=== PATIENT | female | born 1945 | race Caucasian/White ===

== ENCOUNTER 2017-09-19 14:29 | Inpatient (IN) | payer MEDICARE, OTHER ==
--- NOTE | ~2017-09-19 | PR ---
[place], [place] PROGRESS NOTE NAME: ANTOLIN PALOMARES UNIT #: [id number] ROOM: 317 DOCTOR: EUSEBIO LARIOS MD BIRTHDATE: [birth year] DOS: 10/03/2017 CHIEF COMPLAINT: The patient only looked angrily at me and did not verbalize. SUMMARY OF THE VISIT: The patient was interviewed as she sat eating breakfast. She frowned as she looked at me, but did not speak. Nurses report that she episodically will speak, and more so will speak on the phone with her daughter than she will with staff. MENTAL STATUS: Limited due to her lack of participation. PLAN: I will discontinue Seroquel in lieu of Saphris 10 mg twice daily, utilizing 2 antipsychotics at the present time due to her significant decompensation. We will monitor and support, engage in individual and lester milieu activities. EUSEBIO LARIOS MD CM:PNTRANS [phone] EUSEBIO LARIOS MD 10/03/1718 interface
--- NOTE | ~2017-09-19 | PR ---
[place], [place] PROGRESS NOTE NAME[id number] UN[facility] #: [id number] ROOM: 316 DOCTOR: PAIGE NUNO DO BIRTHDATE: [birth year] DOS: 09/21/2017 CHIEF COMPLAINT: "What's happening." SUMMARY OF VISIT: A 72-year-old female interviewed while sitting in the dining benjamin. The patient initially was nonverbal; however, after prompting, the patient states "what is happening, but I am Chau, I should be here." Informed the patient that we did actually see Chau yesterday and are working on her going to the same nursing facility as him. However, she stopped taking her medications and needs to be treated while here. After interviewing the patient and on our way to an interview another patient, she stops and states "wait, not supposed to be here, Chau is here." Again informed the patient about her situation. The patient had multiple episodes of shaking her head back and forth and increase in her breathing rate. She also became tearful and started crying. Per nursing staff, the patient isolates herself and his withdrawal. The patient needing a lot of redirection regarding where she is at. The patient slept about 10 hours last night. MENTAL STATUS EXAMINATION: The patient is alert. It is unclear if she is oriented to herself, claiming to be Chau at one point. She is not oriented to place or time. Majority of the time, the patient is nonverbal, but will speak in short segments. She continues to dart her eyes around the room and sometimes stare intensely at individuals that are present. She continues to look frightened and bewildered. There is no agitation. There is no visual or auditory hallucinations. There is no vikki or hypomania. Short term memory is poor. PLAN: 1. Invega suspension 234 IM. 2. Lab work showed decreased vitamin D at 24.9, vitamin D supplementation was started at 1000 international units daily. 3. We will continue to engage in individual and lester milieu activity with the plan to return to the least restrictive environment when psychiatrically stable. ADDENDUM Dr. Larios 09/27 03:30 p.m.: Above note reviewed. Agree with observations, recommendations, and overall treatment plan. Paige Nuno DO [place], [place] PROGRESS NOTE NAME: ANTOLIN PALOMARES UNIT #: [id number] ROOM: 316 DOCTOR: PAIGE NUNO DO BIRTHDATE: [birth year] EUSEBIO LARIOS MD CM:PNTRANS 1115 T: PAIGE NUNO DO 09/27/17 1558 RONNA AVILA.R
--- NOTE | ~2017-09-19 | DS ---
[place], [place] DISCHARGE SUMMARY NAME: [facility]ES [id number] UNIT #: [id number] ROOM: 317 DOCTOR: EUSEBIO LARIOS MD BIRTHDATE: [birth year] DOS: 10/05/2017 CHIEF COMPLAINT: The patient was nonverbal. HISTORY OF PRESENT ILLNESS: This is a 72-year-old white female who was transferred here from [facility] where she was brought there by EMS. The patient was found by her caregivers at home, nearly catatonic. The patient has a lengthy history of bipolar disorder and has periods of increased catatonia when she decompensates. She has been refusing to eat or drink and has not been attending to her ADLs. Her home was found to be in absolutely deplorable condition. Upon evaluation at [facility], she was found to be minimally conversant and would just stare into space. Because of her overall level of decompensation, it was felt that an inpatient hospitalization was warranted and she was transferred to the [facility] Unit for further evaluation and treatment. PAST MEDICAL HISTORY: Remarkable for bipolar disorder, diverticulosis, GERD, hyperlipidemia, hypothyroidism. SOCIAL HISTORY: The patient does not drink, smoke cigarettes or use illicit drugs. She lists no known allergies. SUMMARY OF THE HOSPITAL COURSE: The patient was admitted to the unit where her Abilify was discontinued in lieu of Risperdal 1 mg twice daily. It was hoped to ultimately stabilize her utilizing a long-acting decanoate injection. The patient had a rather lengthy stay that was characterized by her remaining nearly catatonic during the entire time. Efforts were made to shift from several different antipsychotics and she was tried on Saphris as well as several antidepressants including Remeron and Trintellix. The patient continued to be nearly catatonic through the entire time having brief periods of time where she would engage in very superficial conversation, often times just a word or two. The patient had decompensated physically to the point where it was felt that she was dehydrated and possibly septic. Given that fact on the day of discharge, the patient was transferred from the psychiatric unit to a medical floor for rehydration and also for stabilization. MENTAL STATUS AT DISCHARGE: The patient was alert and oriented to self. She would make eye contact, but barely spoke anything. She moved her extremities and was not resistive in anyway. She was grossly psychotic. There were no symptoms suggestive of hypomania or vikki. It was not possible to further test her memory function because she would not verbalize enough to do so. At the time of discharge, psychiatrically her diagnosis is bipolar disorder type 1, mixed, with psychotic features. DISPOSITION: The patient was medically compromised due to dehydration and was discharged from the psychiatric unit for further medical treatment. [place], [place] DISCHARGE SUMMARY NAME: ANTOLIN PALOMARES UNIT #: [id number] ROOM: [facility] DOCTOR: EUSEBIO LARIOS MD BIRTHDATE: [birth year] EUSEBIO LARIOS MD CM:ELIEL 6 [id number] EUSEBIO LARIOS MD 10/31/17 1231 interface
--- NOTE | ~2017-09-19 | PN ---
[place], [place] PROGRESS NOTE NAME: ANTOLIN PALOMARES UNIT #: [id number] ROOM: 317 DOCTOR: EUSEBIO LARIOS MD BIRTHDATE: [birth year] DATE: 10/09/[address] LARIOS 10/12 02:06 P.M.: Above note reviewed. Agree with observations, recommendations, and overall treatment plan. EUSEBIO LARIOS MD CM:PNTRANS 1406 1543 EUSEBIO LARIOS MD 10/12/17 1543 RONNA AVILA MIS.LLR
--- NOTE | ~2017-09-19 | PR ---
[place], [place] PROGRESS NOTE NAME: ANTOLIN PALOMARES UNIT #: [id number] ROOM: 317 DOCTOR: NURYS PAIGE BIRTHDATE: [birth year] DOS: 09/28/2017 CHIEF COMPLAINT: The patient continues to be nonverbal. SUMMARY OF VISIT: A 72-year-old female was interviewed in the dining benjamin while eating breakfast. The patient is able to eat breakfast unassisted and when spoken to, she stops eating and looks at us. Prompted the patient if she needed anything and the patient kept staring at us and continued to be nonverbal. Nursing reports that patient slept about 8 hours last night. The patient did assist the nurses when she needed to be repositioned of bed or moved such as grabbing the handrails of the bed, which is something that the patient did not do previously. MENTAL STATUS EXAMINATION: The patient is alert and oriented to self. She looks at us when we call her name. Evaluation is limited to the patient being nonverbal. The patient is calm and withdrawn. The patient appears to be selectively mute. PLAN: 1. Continue current medication regimen. 2. Continue to engage in individual and lester milieu activity, returning to a least restrictive environment when psychiatrically stable. 3. Plan to discharge the patient hopefully next week to [facility] when the patient is medically and psychiatrically stable. ADDENDUM 10/12/17 2:06 P.M.: Above note reviewed. Agree with observations, recommendations, and overall treatment plan. Paige Robles DO [place], [place] PROGRESS NOTE NAME: ANTOLIN PALOMARES UNIT #: [id number] ROOM: 317 DOCTOR: NURYS PAIGE BIRTHDATE: [birth year] EUSEBIO LARIOS MD CM:PNTRANS 00 PAIGE ROBLES DO 10/12/17 141 RONNA AVILA MIS.LLR
--- NOTE | ~2017-09-19 | WRIGHTHP ---
[place], [place] PATIENT HISTORY AND PHYSICAL EXAM NAME: [id number] UNIT #: [id number] ROOM: 315 DOCTOR: EUSEBIO LARIOS MD BIRTHDATE: [birth year] DOS: 09/20/2017 INITIAL PSYCHIATRIC EVALUATION CHIEF COMPLAINT: The patient was nonverbal. HISTORY OF PRESENT ILLNESS: This is a 72-year-old white female who was transferred here from [facility] where she had been brought by EMS. The patient was sent to the Emergency Room at [place] by caregivers who found her at home catatonic. The patient has a lengthy history of bipolar disorder and does have periods of increased catatonia when she decompensates. She has been refusing to eat or drink, has not been attending to her ADLs, and her home was found in deplorable conditions. Upon evaluation both at [facility] and since she has been here at the [facility] unit at [facility], the patient has been minimally conversant. She will stare. She has occasionally verbalized a single word answer stating no to the question of are you in pain otherwise. She refused lithium and has refused certain medications. She did not have breakfast this morning. She is admitted now to rule out organic factors, to stabilize on medication, to engage in individual and lester milieu activity, and to determine the least restrictive environment to which she should return. PAST MEDICAL HISTORY: Remarkable for bipolar disorder, diverticulosis, GERD, hyperlipidemia, hypothyroidism. She does not drink alcohol, smoke cigarettes or use illicit drugs. ALLERGIES: She has no known drug allergies. 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 WEAKNESSES: Significant long-term psychiatric disorder and poor coping skills. MENTAL STATUS: The patient is alert and oriented to self. She will make eye contact when you call her name. Otherwise, she was nonverbal, could not really elicit anything from her. At one point in time, however, she did have darting eyes and was looking out into the benjamin or looking at the medical student that had accompanied us into her room. She continued to look somewhat frightened and bewildered, but again did not verbalize anything whatsoever. DIAGNOSIS: Bipolar type 1, mixed, with psychotic features. PLAN: I have discontinued her Abilify in lieu of Risperdal orally disintegrating tablets, which I will now increase to 1 mg b.i.d. If need be, I will utilize either Risperdal Consta or Invega Sustenna to improve compliance. I have discontinued lithium due to her noncompliance plus it can interact with other meds she is taking. I will start her on Remeron orally disintegrating tablet 15 mg at bedtime to combat some of the depressive symptoms. I have instructed director of social services to proceed with a PASR in case she requires long-term care placement. We will attempt to engage in individual and lester milieu [place], [place] PATIENT HISTORY AND PHYSICAL EXAM NAME: ANTOLIN PALOMARES UNIT #: [id number] ROOM: 315 DOCTOR: EUSEBIO LARIOS MD BIRTHDATE: [birth year] activity. We will also consult PT, OT to get her up and moving so that she does not develop any type of pressure sore or muscle wasting. EUSEBIO LARIOS MD CM:HISPHYS:PATIENT HISTORY AND PHYSICAL EXAMINATION 1017 1223 EUSEBIO LARIOS MD 09/20/17 1222 interface
--- NOTE | ~2017-09-19 | PR ---
[place], [place] PROGRESS NOTE NAME: ANTOLIN PALOMARES UNIT #: [id number] ROOM: 316 DOCTOR: EUSEBIO LARIOS MD BIRTHDATE: [birth year] DOS: 09/23/2017 CHIEF COMPLAINT: The patient only looked at me. SUMMARY OF THE VISIT: The patient was attempted to be interviewed as she was resting in her bed. She did make eye contact when I did ask her if she needed the king. There was a king on the window sill and she turned her head to the king. She did not verbalize anything. She was pleasant, however, and she did not yell out or scream like she had in the past. Nurses report she has been more compliant with her meds and did receive her Invega Sustenna loading dose. I see no sedation, somnolence, extrapyramidal symptoms or tardive dyskinesia. MENTAL STATUS: She is alert and oriented to person, unclear place or time. Mood does seem to be still depressed and she is somewhat mute and catatonic, although she does move in response to commands at times. It is hard to assess memory function because of her inability or unwillingness to cooperate. PLAN: At the present time will be to reload with Invega Sustenna 156 mg IM on 09/27/2017 and every month thereafter, continue her other psychotropics, engage in individual and lester milieu activity, returning to the least restrictive environment when stable. EUSEBIO LARIOS MD CM:PNTRANS [id number] EUSEBIO LARIOS MD 09/24/17 0047 interface
--- NOTE | ~2017-09-19 | PR ---
[place], [place] PROGRESS NOTE NAME: ANTOLIN PALOMARES UNIT #: [id number] ROOM: 317 DOCTOR: PAIGE NUNO DO BIRTHDATE: [birth year] DOS: 09/29/2017 CHIEF COMPLAINT: "The patient remains nonverbal." SUMMARY OF VISIT: A 72-year-old female was interviewed in the dining benjamin. The patient remained nonverbal during the entire interview. She continued to stare at her breakfast tray the entire time this morning without acknowledging us. When we spoke to her, the patient would not turn or nod her head today. The patient was able to feed herself breakfast yesterday; however, has not fed herself since then. Nursing staff attempted to assist patient to eat and drink, but she continued to refuse this morning. Nursing reports the patient did walk about 40 feet last night with a very slow shuffling gait pattern. The patient has not walked since then. The patient had slept about 5 hours last night. MENTAL STATUS EXAMINATION: She is alert, unable to assess orientation at this time because the patient is refusing to move and is nonverbal. Evaluation continues to be limited due to patient being nonverbal. We continued to suspect that the patient is selectively mute. PLAN: 1. Discontinue Ritalin. 2. Start Wellbutrin-XL 150 mg q.a.m. 3. Continue to have individual, engage in individual and lester milieu activity, returning to the least restrictive environment when psychiatrically stable. 4. Discharge will be determined when the patient is medically and psychiatrically stable at that time. ADDENDUM 10/12/17 2:06 P.M.: Above note reviewed. Agree with observations, recommendations, and overall treatment plan. Paige Nuno DO [place], [place] PROGRESS NOTE NAME: ANTOLIN PALOMARES UNIT #: [id number] ROOM: 317 DOCTOR: PAIGE NUNO DO BIRTHDATE: [birth year] EUSEBIO LARIOS MD CM:PNTRANS 5 20 PAIGE NUNO DO 10/12/17 1410 RONNA AVILA.R
--- NOTE | ~2017-09-19 | PR ---
[place], [place] PROGRESS NOTE NAME: ANTOLIN PALOMARES UNIT #: [id number] ROOM: 317 DOCTOR: EUSEBIO LARIOS MD BIRTHDATE: [birth year] DOS: 10/01/2017 INTERVAL NOTE CHIEF COMPLAINT: "The patient was once again nonverbal towards me." SUMMARY OF THE VISIT: The patient was attempted to be interviewed. She was sitting in a Quita chair by the nurses' station. She once again was nonverbal towards me; however, the nurse that was working with her last evening said that she made a dramatic improvement last evening, verbalized some to her, was able to tell the nurse that she does feel anxious and worries about things. She fed herself. She took her medicines herself once again this morning; however, she became nonverbal. How much of this is anxiety driven by psychosis is unclear. MENTAL STATUS: Limited by her being nonverbal. PLAN: I will maintain her Wellbutrin-XL and her Remeron, maintain the Seroquel, consider increasing this. For now, I will look to add Ativan 0.5 mg 3 times a day to see if this dissipates her anxiety and makes her feel more like engaging. We will attempt to engage as much we can in individual and lester milieu activity, returning then to the least restrictive environment when stable. EUSEBIO LARIOS MD CM:PNTRANS [phone] EUSEBIO LARIOS MD 10/01/17 2320 interface
--- NOTE | ~2017-09-19 | PR ---
[place], [place] PROGRESS NOTE [id number] UNIT #: [id number] ROOM: 316 DOCTOR: PAIEG NUNO DO BIRTHDATE: [birth year] DOS: 09/22/2017 PSYCHIATRIC PROGRESS NOTE CHIEF COMPLAINT: "Okay." SUMMARY OF VISIT: A 72-year-old female was interviewed while sitting in the chair in her room. The patient continues to stare intensely and provides one word answers, usually consisting of okay or yes or no. When asked about breakfast, the patient just said yes. The patient then became nonverbal and did not answer any further questions. When asked about being cold, the patient did nod her head, but otherwise remained nonverbal. Informed the patient about people visiting from [facility] and the patient just continued to stare. Per nursing staff, the patient refused night meds last night. The patient was given p.r.n. Ativan IM for anxiety. Nursing reported that patient usually speaks more earlier in the day; however, as the day progresses, she becomes more mute. The patient was reported having stated to one nursing staff member that she was going to go to hel and could feel the demons biting her legs. MENTAL STATUS EXAMINATION: The patient is alert and oriented to self. She responded to her name when it was called. Unable to assess whether she was oriented to place or time due to patient becoming nonverbal during interview. Mood is depressed and anxious. Affect is flat. The patient is very paranoid with eyes darting around. She is most of the time, nonverbal, when asked questions. There is no agitation. There is no visual or auditory hallucinations. There is no vikki or hypomania. Short term memory remains poor. PLAN: 1. Invega suspension 234 mg IM today. 2. The patient was found to have a UTI. Culture and sensitivity come back and medications were readjusted in regards of that via the hospitalist team. 3. We will engage in individual and lester milieu activity with a plan to return to the least restrictive environment when psychiatrically stable. ADDENDUM Dr. Larios 09/27 03:30 p.m.: Above note reviewed. Agree with observations, recommendations, and overall treatment plan. Paige Nuno DO [place], [place] PROGRESS NOTE NAME: ANTOLIN PALOMARES [place] UNIT #: [id number] ROOM: [facility] DOCTOR: PAIGE NUNO DO BIRTHDATE: [birth year] EUSEBIO LARIOS MD CM:PNANDRES 1136 T: PAIGE NUNO DO 09/27/17 1559 RONNA AVILA.R
--- NOTE | ~2017-09-19 | PR ---
[place], [place] PROGRESS NOTE NAME: ANTOLIN PALOMARES UNIT #: [id number] ROOM: 316 DOCTOR: EUSEBIO LARIOS MD BIRTHDATE: [birth year] DOS: 09/24/2017 CHIEF COMPLAINT: "The patient was nonverbal and just stared ahead." SUMMARY OF THE VISIT: The patient was attempted to be interviewed as she rested in bed. She was staring straight ahead. I attempted on multiple occasions to engage her changing the subject frequently in it to see if I can get her to at least verbalize something, she did not. She was not agitated, however, did not scream or yell. She did seem to be tolerating the medicines well and I see no sedation or somnolence. MENTAL STATUS: My mental status examination is limited because she is mute. PLAN: I will give her a dose of Ritalin 10 mg at noon to see if this could give some activating effect and help her move out of this near catatonic state. I will also change when she gets the Invega Sustenna injection of 156 mg and move it forward to 09/25/2017 rather than waiting to 09/27/2017. We will attempt to engage her as much as we can and discharge then when psychiatrically stable. EUSEBIO LARIOS MD CM:PNTRANS [phone] EUSEBIO LARIOS MD 09/25/17 0552 interface
--- NOTE | ~2017-09-19 | PR ---
[place], [place] PROGRESS NOTE NAME: ANTOLIN PALOMARES UNIT #: [id number] ROOM: 316 DOCTOR: EUSEBIO LARIOS MD BIRTHDATE: [birth year] DOS: 09/25/2017 CHIEF COMPLAINT: "The patient nodded yes and no, but engaged in conversation with me." SUMMARY OF THE VISIT: The patient was once again interviewed as she was resting in bed. She was staring straight ahead. At this time, though she at least made eye contact with me and when I asked her simple yes and no questions, she was able to nod yes or no appropriately. What I was able to gather from my visit was that she is not sleeping at night, she is not sleeping during the day and napping at all. She is tired, but cannot rest. She is willing to allow me to give her some type of medicine at nighttime that is going to allow her to sleep better. She was very cooperative and not resistant to me in anyway this morning. MENTAL STATUS: She is alert and oriented at least to self, place and unclear about time. 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 PLAN: I will discontinue her Risperdal at nighttime in lieu of Seroquel 100 mg at bedtime. At this point in time given the severity of her catatonia, psychosis or selective mutism, I feel justify utilizing 2 different antipsychotics. I will renew her p.r.n. Ativan, try at best to engage her in individual and lester milieu activities, returning to the least restrictive environment when stable. EUSEBIO LARIOS MD CM:PNTRANS [phone] EUSEBIO LARIOS MD 09/26/17 0602 interface
--- NOTE | ~2017-09-19 | PR ---
[place], [place] PROGRESS NOTE NAME: ANTOLIN APLOMARES UNIT #: [id number] ROOM: 317 DOCTOR: EUSEBIO LARIOS MD BIRTHDATE: [birth year] DOS: 10/04/2017 CHIEF COMPLAINT: The patient was nonverbal. SUMMARY OF THE VISIT: The patient was attempted to be interviewed in the dining area where she was reclining in a Quita chair, watching television. The patient had her eyes open, but would not speak to me once again. After a brief period where she did seem to start wanting to converse, she has totally shut down once again. She has not been eating or drinking, which is worrisome. MENTAL STATUS: It is limited due to her lack or inability to cooperate. PLAN: I will discontinue her Saphris to lessen the antipsychotic load now and add Artane 2 mg t.i.d. to combat any EPS. We will check a stat CMP and CBC with diff just to ensure that medically she is stable. Engage in individual and lester milieu activities with the plan to return to the least restrictive environment when psychiatrically stable. EUSEBIO LARIOS MD CM:PNTRANS 1135 12 EUSEBIO LARIOS MD 10/04/172110 interface
--- NOTE | ~2017-09-19 | PR ---
[place], [place] PROGRESS NOTE NAME: ANTOLIN PALOMARES UNIT #: [id number] ROOM: 317 DOCTOR: EUSEBIO LARIOS MD BIRTHDATE: [birth year] DOS: 10/02/2017 INTERVAL NOTE CHIEF COMPLAINT: The patient was nonverbal. SUMMARY OF THE VISIT: The patient was attempted to be interviewed as she sat in the dining area. She was sitting there this time with her eyes closed. Efforts to engage her were unsuccessful. As opposed to the weekend when she actually conversed with one of the nurses, she once again has been much more nonverbal and noncommunicative. Question is if this is somewhat related to the Ativan that was added yesterday in hopes to decrease her anxiety. MENTAL STATUS EXAMINATION: It is limited due to her lack of participation. PLAN: I will discontinue the straight Ativan in case this is causing her too much sedation and we will monitor over the next 24 hours for risk, benefits. Continue to engage in individual and lester milieu activity, returning then to the least restrictive environment when psychiatrically stable. EUSEBIO LARIOS MD CM:PNTRANS 6 38 EUSEBIO LARIOS MD 10/02/171936 interface
--- NOTE | ~2017-09-19 | CON ---
[place], [place] REPORT OF CONSULTATION NAME: ANTOLIN PALOMARES UNIT #: [id number] ROOM: 317 DOCTOR: PHD TOM SCHWARTZ BIRTHDATE: [birth year] DOS: 10/05/2017 HISTORY OF PRESENT ILLNESS: The patient is a 72-year-old female referred by Dr. Bland for competency evaluation. The patient was evaluated on 09/20/[address] Arthur Su and was found to be not competent to make informed health care decisions. The patient is on the [facility] at [facility]. The patient remains catatonic per medical records and attempted clinical interview. She has 1 son and 1 daughter who both live out of [facility]. PAST MEDICAL HISTORY: Significant for bipolar 1 with psychotic features, catatonia, diverticulosis, GERD, hypothyroidism, and hyperlipidemia. MEDICATIONS: Include Remeron, Cogentin, Lipitor, clonidine, Zofran, vitamin D, Synthroid, Protonix, Toprol-XL, Artane, and Wellbutrin, Benadryl, and Saphris. SUBSTANCE ABUSE HISTORY: Unable to be assessed. PHYSICAL EXAMINATION: GENERAL: The patient is awake and not alert. She did not respond to questions verbally or nonverbally and she could not participate in the evaluation. SOCIAL HISTORY: She does not have a guardian or power of insurance legal assistant presently and is unable to make informed decisions. DIAGNOSES: Bipolar 1 with psychotic features. In my opinion, guardianship should be established for this patient and she is not competent to make informed health care decisions. Thank you very much for this consult. Lindsey Schwartz, PhD CM:CONSTR:REPORT OF CONSULTATION 1017 10/05/17 1751 interface
--- NOTE | ~2017-09-19 | PR ---
[place], [place] PROGRESS NOTE NAME: ANTOLIN PALOMARES UNIT #: [id number] ROOM: 317 DOCTOR: EUSEBIO LARIOS MD BIRTHDATE: [birth year] DOS: 09/30/2017 INTERVAL NOTE CHIEF COMPLAINT: The patient was nonverbal. SUMMARY OF THE VISIT: The patient was attempted to be interviewed as she was being wheeled into the dining area. Nurses continued to report that she is episodically nonverbal and mainly nonverbal for the most part. She eats [id number]-[id number]. There has been no agitation or aggression. She has shown minimal interaction with staff. MENTAL STATUS: My mental status is limited due to her overall lack of cooperation or inability to cooperate. PLAN: I will max out Remeron to 45 mg at bedtime trying to utilize a more active agent while simultaneously increasing the Wellbutrin-XL to 300 mg in the morning. Likewise to have activating agents to see if I can get her out of this near catatonic state. Engage in individual and lester milieu activity as best we can, returning to the least restrictive environment when stable. EUSEBIO LARIOS MD CM:PNTRANS [id number] EUSEBIO LARIOS MD 10/01/17 0038 interface
--- NOTE | ~2017-09-19 | PR ---
[place], [place] PROGRESS NOTE NAME: ANTOLIN PALOMARES UNIT #: [id number] ROOM: 317 DOCTOR: PAIGE NUNO DO BIRTHDATE: [birth year] DOS: 09/27/2017 PSYCHIATRIC PROGRESS NOTE CHIEF COMPLAINT: The patient is currently nonverbal and just staring. SUMMARY OF VISIT: A 72-year-old female was interviewed while sitting in the dining benjamin. The patient did turn her head towards us when we called her name. The patient continued to just stare at us for the rest of the conversation without moving. I asked the patient about going to the same [facility] as Chau and the patient did have a facial expression that represented a frown but remained nonverbal. I again asked the patient to give us any indication of what she wants and patient did not respond. Per nursing staff, patient slept about 7 hours last night, but had continued episodes of waking up and staring at staff. The patient did take her medications and did swallow some water when prompted. The patient does make eye contact with staff. MENTAL STATUS EXAMINATION: The patient is alert and oriented to self. The patient turned her head towards us when stating her name, unable to determine if she is oriented to place or time due to the patient being nonverbal. Evaluation is limited due to her continuing to be nonverbal. 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 PLAN: 1. Continue current medication regimen. 2. Continue to engage in individual and elster milieu activity returning to the least restrictive environment when psychiatrically stable. ADDENDUM 10/12/17 2:06 P.M.: Above note reviewed. Agree with observations, recommendations, and overall treatment plan. Paige Nuno DO [place], [place] PROGRESS NOTE NAME: ANTOLIN PALOMARES UNIT #: [id number] ROOM: 317 DOCTOR: PAIGE NUNO DO BIRTHDATE: [birth year] EUSEBIO LARIOS MD CM:PNTRANS [id number] PAIGE NUNO DO 10/12/17 1410 RONNA AVILA.LLR
--- NOTE | ~2017-09-19 | CON ---
[place], [place] REPORT OF CONSULTATION NAME: ANTOLIN PALOMARES UNIT #: [id number] ROOM: 315 DOCTOR: LAWRENCE LESTER ED.D (KHARI) BIRTHDATE: [birth year] DOS: 09/20/2017 HISTORY OF PRESENT ILLNESS: The patient is a 72-year-old female referred by Dr. Larios for competency evaluation. At the present time, this patient is on the [facility] Unit at [facility]. At the present time, she is quite catatonic. She does have 1 son and 1 daughter, both of whom reside in state other than [place]. PAST MEDICAL HISTORY: Pertinent for bipolar 1 with psychotic features, catatonia, diverticulosis, GERD, hypothyroidism, hyperlipidemia. MEDICATIONS: Include Risperdal, Lipitor, Synthroid, Lithobid, Toprol, Claritin, lycopene, Senokot and Protonix. I am uncertain of her past substance abuse issues. This patient was awake and alert. She could not answer when I asked any questions regarding her name or where she was. She appeared to be having visual hallucinations throughout the interview. It is difficult to assess her memory because she is not really talking other than saying a few words. She is obviously quite psychotic at this time and needs inpatient treatment. Unfortunately, she does not have a guardian or power of bankruptcy attorney at this time and is unable to make any informed decisions, so therefore, I completed guardianship papers for this patient. DIAGNOSIS: Bipolar 1 with psychotic features. RECOMMENDATIONS: In my opinion, guardian should be established for this patient and that she is unable to really communicate her needs or wishes regarding her healthcare. Thank you very much for this consult. LAWRENCE LESTER ED.D CM:CONSTR:REPORT OF CONSULTATION 1721 09/20/172125 interface EUSEBIO LARIOS MD
--- NOTE | ~2017-09-19 | PR ---
[place], [place] PROGRESS NOTE NAME: ANTOLIN PALOMARES UNIT #: [id number] ROOM: 316 DOCTOR: PAIGE NUNO DO BIRTHDATE: [birth year] DOS: 09/26/2017 PSYCHIATRIC PROGRESS NOTE CHIEF COMPLAINT: Patient is currently nonverbal and not even moving her head at this time. SUMMARY OF VISIT: A 72-year-old female was interviewed while sitting in the hallway with physical therapy. At this time, patient did not respond to any questions and did not even acknowledge our presence. Throughout the entire interview, patient continued to look straight ahead at the wall without moving her eyes and had her hands gripping the side rails. Patient did not even move her head to address any of the questions when being asked. Per nursing staff, patient did take all of her medications with lots of coaxing for the past 24 hours. Nursing reports that patient was more compliant with medications when you mention to her that Chau told her to take them. Patient also had Chau call her yesterday on the phone; however, patient did not acknowledge the phone or even talk to Chau. Nursing also reports that patient slept about 4 hours last night with frequent episodes of her being awake and staring intensely at staff when they walked by her room. MENTAL STATUS EXAMINATION: Patient is alert, unable to assess orientation at this time due to patient being nonverbal. Evaluation is limited due to patient being nonverbal. 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 PLAN: 1. Increase Ritalin 10 mg b.i.d. 2. Continue to engage in individual and lester milieu activity, returning to the least restrictive environment when psychiatrically stable. ADDENDUM Dr. Larios 09/27 03:30 p.m.: Above note reviewed. Agree with observations, recommendations, and overall treatment plan. Paige Nuno DO [place], [place] PROGRESS NOTE NAME: ANTOLIN PALOMARES UNIT #: [id number] ROOM: 316 DOCTOR: PAIGE NUNO DO BIRTHDATE: [birth year] EUSEBIO LARIOS MD CM:VANGIE 0910 T: PAIGE NUNO DO 09/27/17 1601 RONNA AVILA.R
[2017-09-19] MEDS ORDERED: PROTONIX40 MG PO (15:31)
[2017-09-19] MEDS ORDERED: SYNTHROID,LEV125 MCG PO (15:32)
[2017-09-19] MEDS ORDERED: LITHOBID300 M1 PO (15:33)
[2017-09-19] MEDS ORDERED: LIPITOR20 MG PO (15:33)
[2017-09-19] MEDS ORDERED: CLARITIN10 MG PO (15:35)
[2017-09-19] MEDS ORDERED: TOPROL XL25 MG PO (15:36)
[2017-09-19] MEDS ORDERED: THERAGRAN-M PR1 EACH PO (15:36)
[2017-09-19] MEDS ORDERED: COLACE100 MG PO (15:37)
[2017-09-19] MEDS ORDERED: SENOKOT8.6 MG PO (15:37)
[2017-09-19] MEDS ORDERED: ABILIFY20 MG PO (15:39)
[2017-09-19] MEDS ORDERED: TYLENOL EXTRA500 M2 PO (15:39)
[2017-09-19 17:17] VITALS: BP 202/94
[2017-09-19 17:46] VITALS: BP 202/94
[2017-09-19 20:11] VITALS: BP 184/86
[2017-09-20] VITALS (11 sets, daily range): BP systolic 125–200; BP diastolic 58–84
[2017-09-20 09:31] LABS: BASO % 0.4 % (0.0-1.0); EOS # 0.1 10*3/uL (0.0-0.4); EOS % 1.4 % (1.0-4.0); HEMATOCRIT 41.2 % (37.0-47.0); HEMOGLOBIN 13.6 g/dl (12.0-16.0); LYMPH # 0.6 10*3/uL (1.3-4.4); LYMPH % 12.3 % (27.0-41.0); MEAN CELL VOLUME 94.7 fl (81.0-99.0); MEAN CORPUSCULAR HGB 31.3 pg (27.0-31.0); MEAN PLATELET VOLUME 9.5 fl (9.6-12.3); MONO # 0.4 10*3/uL (0.1-1.0); MONO % 7.5 % (3.0-9.0); PLATELET COUNT AUTOMATED 161 10*3/uL (130-400); RED BLOOD COUNT 4.35 10*6/uL (4.10-5.10); RED CELL DISTRI WIDTH 13.2 % (0-14.5); WHITE BLOOD COUNT 5.1 10*3/uL (4.8-10.8)
[2017-09-20 10:00] LABS: ALBUMIN 3.9 gm/dl (3.1-4.5); ALKALINE PHOSPHATASE 80 U/L (45-117); BUN 12 mg/dl (7-24); CHLORIDE 107 mmol/L (98-107); CHOLESTEROL 247 mg/dL (<200); CREATININE 0.58 mg/dL (0.55-1.02); HDL CHOLESTEROL 48 mg/dl (40-60); LDL CHOLESTEROL 179 mg/dL (9-159); PHOSPHOROUS 2.6 mg/dL (2.5-4.9); POTASSIUM 3.4 mmol/L (3.5-5.1); SGOT/AST 15 IU/L (3-35); SGPT/ALT 19 U/L (12-78); SODIUM 144 mmol/L (136-145); TRIGLYCERIDES 101 mg/dl (<150); VLDL CHOLESTEROL 20 mg/dL (6-40)
[2017-09-20 10:01] LABS: BILIRUBIN NEGATIVE (NEGATIVE); BLOOD 2+ (NEGATIVE); CLARITY TURBID (CLEAR); COLOR YELLOW (YELLOW); GLUCOSE NEGATIVE (NEGATIVE); KETONE 3+ (NEGATIVE); LEUKO ESTERASE 3+ (NEGATIVE); NITRITE POSITIVE (NEGATIVE); SPECIFIC GRAVITY >= 1.030 (1.005-1.030)
[2017-09-20 10:05] LABS: THYROID STIM HORMONE (HS) 0.985 uIU/ml (0.358-4.75)
[2017-09-20 10:31] LABS: BACTERIA 4+; MUCOUS 2+; WBC TNTC wbc/hpf (0-5)
[2017-09-20 10:35] LABS: VITAMIN D, 25-HYDROXY 24.9 ng/mL (30-100)
[2017-09-21 08:14] VITALS: BP 132/60
[2017-09-21 08:46] LABS: BUN 20 mg/dl (7-24); CHLORIDE 107 mmol/L (98-107); CREATININE 0.64 mg/dL (0.55-1.02); POTASSIUM 3.9 mmol/L (3.5-5.1); SODIUM 144 mmol/L (136-145)
[2017-09-21 20:24] VITALS: BP 146/63
[2017-09-22 07:54] VITALS: BP 168/60
[2017-09-22 20:02] VITALS: BP 155/65
[2017-09-23 08:38] VITALS: BP 144/58
[2017-09-23 08:55] VITALS: BP 144/58
[2017-09-23 18:30] LABS: BILIRUBIN NEGATIVE (NEGATIVE); BLOOD TRACE-INTACT (NEGATIVE); CLARITY SL CLOUDY (CLEAR); COLOR YELLOW (YELLOW); GLUCOSE NEGATIVE (NEGATIVE); KETONE 1+ (NEGATIVE); LEUKO ESTERASE 3+ (NEGATIVE); NITRITE NEGATIVE (NEGATIVE); SPECIFIC GRAVITY 1.025 (1.005-1.030); UROBILINOGEN 0.2 E.U./dl (0.2-1.0)
[2017-09-23 18:35] LABS: BACTERIA 2+; MUCOUS 1+; RBC 0-2 rbc/hpf (0-2); WBC TNTC wbc/hpf (0-5)
[2017-09-23 19:54] VITALS: BP 155/70
[2017-09-24 08:09] VITALS: BP 198/70
[2017-09-24 10:11] VITALS: BP 150/76
[2017-09-24 19:58] VITALS: BP 175/72
[2017-09-25 07:35] VITALS: BP 132/57
[2017-09-25 20:04] VITALS: BP 148/75
[2017-09-26 09:16] VITALS: BP 149/74
[2017-09-26 19:57] VITALS: BP 158/71
[2017-09-27 07:42] VITALS: BP 140/58
[2017-09-27 20:00] VITALS: BP 140/60
[2017-09-28 07:21] VITALS: BP 116/57
[2017-09-28 20:00] VITALS: BP 127/61
[2017-09-29 07:37] VITALS: BP 126/70
[2017-09-29 19:55] VITALS: BP 131/74
[2017-09-30 07:28] VITALS: BP 143/65
[2017-09-30 20:00] VITALS: BP 145/70
[2017-10-01 07:34] VITALS: BP 125/59
[2017-10-01 19:13] VITALS: BP 146/60
[2017-10-02 08:01] VITALS: BP 136/74
[2017-10-02 19:47] VITALS: BP 121/57
[2017-10-03 07:37] VITALS: BP 132/67
[2017-10-03 20:09] VITALS: BP 148/76
[2017-10-04 07:40] VITALS: BP 126/60
[2017-10-04 11:59] LABS: BASO % 0.4 % (0.0-1.0); EOS # 0.1 10*3/uL (0.0-0.4); EOS % 1.4 % (1.0-4.0); HEMATOCRIT 41.8 % (37.0-47.0); HEMOGLOBIN 13.8 g/dl (12.0-16.0); LYMPH # 0.7 10*3/uL (1.3-4.4); LYMPH % 12.9 % (27.0-41.0); MEAN CELL VOLUME 92.5 fl (81.0-99.0); MEAN CORPUSCULAR HGB 30.5 pg (27.0-31.0); MEAN PLATELET VOLUME 9.4 fl (9.6-12.3); MONO # 0.5 10*3/uL (0.1-1.0); MONO % 9.8 % (3.0-9.0); NEUT # 3.8 10*3/uL (2.3-7.9); NEUT % 75.1 % (47.0-73.0); PLATELET COUNT AUTOMATED 139 10*3/uL (130-400); RED BLOOD COUNT 4.52 10*6/uL (4.10-5.10); RED CELL DISTRI WIDTH 13.6 % (0-14.5); WHITE BLOOD COUNT 5.1 10*3/uL (4.8-10.8)
[2017-10-04 12:13] LABS: ALBUMIN 3.1 gm/dl (3.1-4.5); ALKALINE PHOSPHATASE 132 U/L (45-117); BUN 14 mg/dl (7-24); CHLORIDE 104 mmol/L (98-107); POTASSIUM 4.1 mmol/L (3.5-5.1); SGOT/AST 19 IU/L (3-35); SGPT/ALT 16 U/L (12-78); SODIUM 141 mmol/L (136-145)
[2017-10-04 19:08] VITALS: BP 148/78
[2017-10-05 07:55] VITALS: BP 160/78
[2017-10-05] MEDS ORDERED: COGENTIN2 MG/2 ML IM (12:25)
[2017-10-05] MEDS ORDERED: VITAMIN D31000 UNI1 PO (12:26)
[2017-10-05] MEDS ORDERED: REMERON15 M2 PO (12:26)
[2017-10-05] MEDS ORDERED: Catapres-Tts 20.2 MG PO (12:27)
== END 2017-10-05 11:24 | disposition short-term general hospital (02) | DRG 885 ==
LOC: 3N 14:29
PROVIDERS: Internal Medicine; Internal Medicine Hospice and Palliative Medicine; Psychiatry & Neurology Psychiatry
DX: F31.5 Bipolar disorder, current episode depressed, severe, with psychotic features (principal); F06.1 Catatonic disorder due to known physiological condition; N39.0 Urinary tract infection, site not specified; Z91.14 Patient's other noncompliance with medication regimen; F23 Brief psychotic disorder; R31.9 Hematuria, unspecified; E03.9 Hypothyroidism, unspecified; I16.0 Hypertensive urgency; F41.9 Anxiety disorder, unspecified; K21.9 Gastro-esophageal reflux disease without esophagitis; E78.5 Hyperlipidemia, unspecified; K57.90 Diverticulosis of intestine, part unspecified, without perforation or abscess without bleeding; E87.6 Hypokalemia; I10 Essential (primary) hypertension; R51 Headache; E55.9 Vitamin D deficiency, unspecified; R11.0 Nausea; Z16.12 Extended spectrum beta lactamase (ESBL) resistance; B96.20 Unspecified Escherichia coli [E. coli] as the cause of diseases classified elsewhere; B35.1 Tinea unguium; I73.9 Peripheral vascular disease, unspecified

== ENCOUNTER 2017-10-05 11:46 | Inpatient (IN) | payer MEDICARE, OTHER ==
[~2017-10-05] VITALS: Ht 175.3 cm; Wt 95.1 kg
--- NOTE | ~2017-10-05 | CON ---
[place], [place] REPORT OF CONSULTATION NAME: ANTOLIN PALOMARES UNIT #: [id number] ROOM: 425 DOCTOR: PHD HARPREET TOM BIRTHDATE: [birth year] DOS: 10/05/2017 HISTORY OF PRESENT ILLNESS: The patient is a 72-year-old female referred by Dr. Cabrera for competency evaluation. At the present time, the patient is on [facility] at [facility]. The patient was evaluated on 09/20/[address] Pako Su and was found to be not competent to make informed health care decisions. During the present evaluation, the patient was catatonic. She has 1 son and 1 daughter who both live out of state. PAST MEDICAL HISTORY: Significant for bipolar 1 with psychotic features, catatonia, diverticulosis, GERD, hypothyroidism and hyperlipidemia. MEDICATIONS: Include Lovenox, Remeron, Cogentin, clonidine, Zofran, vitamin D, Synthroid, Protonix, Toprol-XL, Artane, Wellbutrin, Benadryl, Saphris. SUBSTANCE ABUSE HISTORY: Unable to be assessed. The patient was awake, but not alert or oriented. She did not respond to questions either verbally or nonverbally and cannot participate in the evaluation. She does not have a guardian or POA presently and is unable to make informed health care decisions. Expert evaluation paperwork was completed. DIAGNOSIS: Bipolar 1 with psychotic features. RECOMMENDATIONS: 1. In my opinion, a guardian to be established for this patient. 2. She is not competent to make informed health care decisions. Thank you very much for this consult. Lindsey Schwartz, PhD CM:CONSTR:REPORT OF CONSULTATION 1632 10/06/17 0010 interface
--- NOTE | ~2017-10-05 | PN ---
[place], [place] PROGRESS NOTE NAME: ANTOLIN PALOMARES UNIT #: [id number] ROOM: 425 DOCTOR: EUSEBIO LARIOS MD BIRTHDATE: [birth year] DATE: 10/06/[address] LARIOS 10/12 02:06 P.M.: Above note reviewed. Agree with observations, recommendations, and overall treatment plan. EUSEBIO LARIOS MD CM:PNTRANS [id number] EUSEBIO LARIOS MD 10/12/17 1550 RONNA AVILA MIS.LLR
[~2017-10-05 11:46] MED LIST: ABILIFY20 MG PO; CLARITIN10 MG PO; COLACE100 MG PO; LIPITOR20 MG PO; LITHOBID300 M1 PO; PROTONIX40 MG PO; SENOKOT8.6 MG PO; SYNTHROID,LEV125 MCG PO; THERAGRAN-M PR1 EACH PO; TOPROL XL25 MG PO; TYLENOL EXTRA500 M2 PO
[2017-10-05 12:00] VITALS: BP 149/83
[2017-10-05] MEDS ORDERED: COGENTIN2 MG/2 ML IM (12:25)
[2017-10-05] MEDS ORDERED: VITAMIN D31000 UNI1 PO (12:26)
[2017-10-05] MEDS ORDERED: REMERON15 M2 PO (12:26)
[2017-10-05] MEDS ORDERED: Catapres-Tts 20.2 MG PO (12:27)
[2017-10-05 13:05] LABS: BASO % 0.2 % (0.0-1.0); EOS % 0.6 % (1.0-4.0); HEMATOCRIT 43.1 % (37.0-47.0); HEMOGLOBIN 14.4 g/dl (12.0-16.0); LYMPH # 0.4 10*3/uL (1.3-4.4); LYMPH % 6.6 % (27.0-41.0); MEAN CELL VOLUME 92.3 fl (81.0-99.0); MEAN CORPUSCULAR HGB 30.8 pg (27.0-31.0); MEAN CORPUSCULAR HGB CONC 33.4 g/dl (33.0-37.0); MEAN PLATELET VOLUME 9.3 fl (9.6-12.3); MONO # 0.5 10*3/uL (0.1-1.0); MONO % 8.8 % (3.0-9.0); NEUT # 4.6 10*3/uL (2.3-7.9); NEUT % 83.6 % (47.0-73.0); PLATELET COUNT AUTOMATED 159 10*3/uL (130-400); RED BLOOD COUNT 4.67 10*6/uL (4.10-5.10); RED CELL DISTRI WIDTH 13.7 % (0-14.5); WHITE BLOOD COUNT 5.5 10*3/uL (4.8-10.8)
[2017-10-05 13:14] LABS: ACT PARTIAL THROMBO TIME 25.7 SECONDS (20.8-31.5)
[2017-10-05 13:19] LABS: ALBUMIN 3.4 gm/dl (3.1-4.5); ALKALINE PHOSPHATASE 140 U/L (45-117); BUN 12 mg/dl (7-24); CHLORIDE 104 mmol/L (98-107); CREATININE 0.53 mg/dL (0.55-1.02); POTASSIUM 3.9 mmol/L (3.5-5.1); SGOT/AST 25 IU/L (3-35); SGPT/ALT 19 U/L (12-78); SODIUM 141 mmol/L (136-145); TOTAL PROTEIN 7.4 gm/dL (6.4-8.2)
[2017-10-05 16:00] VITALS: BP 151/73
[2017-10-05 20:00] VITALS: BP 144/62
[2017-10-06] VITALS: BP 154/62
[2017-10-06 08:00] VITALS: BP 152/74
[2017-10-06 12:00] VITALS: BP 130/70
[2017-10-06 16:00] VITALS: BP 135/48
[2017-10-06 20:00] VITALS: BP 123/50
[2017-10-07] VITALS: BP 112/52
[2017-10-07 07:03] LABS: BASO % 0.3 % (0.0-1.0); EOS # 0.1 10*3/uL (0.0-0.4); EOS % 2.4 % (1.0-4.0); LYMPH # 0.6 10*3/uL (1.3-4.4); MEAN CELL VOLUME 94.1 fl (81.0-99.0); MEAN CORPUSCULAR HGB 30.9 pg (27.0-31.0); MEAN CORPUSCULAR HGB CONC 32.8 g/dl (33.0-37.0); MONO # 0.3 10*3/uL (0.1-1.0); MONO % 8.3 % (3.0-9.0); NEUT # 2.8 10*3/uL (2.3-7.9); NEUT % 73.7 % (47.0-73.0); PLATELET COUNT AUTOMATED 122 10*3/uL (130-400); RED BLOOD COUNT 3.53 10*6/uL (4.10-5.10); RED CELL DISTRI WIDTH 13.8 % (0-14.5); WHITE BLOOD COUNT 3.7 10*3/uL (4.8-10.8)
[2017-10-07 07:06] LABS: HEMATOCRIT 33.2 % (37.0-47.0); HEMOGLOBIN 10.9 g/dl (12.0-16.0)
[2017-10-07 07:27] LABS: BUN 9 mg/dl (7-24); CHLORIDE 112 mmol/L (98-107); CREATININE 0.48 mg/dL (0.55-1.02); POTASSIUM 3.1 mmol/L (3.5-5.1); SODIUM 144 mmol/L (136-145)
[2017-10-07 07:48] VITALS: BP 112/51
[2017-10-07 08:00] VITALS: BP 112/51
[2017-10-07 12:00] VITALS: BP 118/58
[2017-10-07 16:00] VITALS: BP 110/50
[2017-10-07 20:00] VITALS: BP 124/57
[2017-10-08] VITALS: BP 144/60
[2017-10-08 08:00] VITALS: BP 149/65
[2017-10-08 12:00] VITALS: BP 139/67
[2017-10-08 16:00] VITALS: BP 134/62
[2017-10-09] MEDS ORDERED: DIVALPROEX SOD125 M1 PO ×2 (10:02)
== END 2017-10-08 16:47 | disposition home health service (06) | DRG 71 ==
LOC: 4E 11:46
PROVIDERS: Internal Medicine; Internal Medicine Nephrology
DX: G93.41 Metabolic encephalopathy (principal); F23 Brief psychotic disorder; E44.1 Mild protein-calorie malnutrition; F06.1 Catatonic disorder due to known physiological condition; R17 Unspecified jaundice; E83.51 Hypocalcemia; F31.5 Bipolar disorder, current episode depressed, severe, with psychotic features; E80.6 Other disorders of bilirubin metabolism; D72.810 Lymphocytopenia; F41.9 Anxiety disorder, unspecified; E03.9 Hypothyroidism, unspecified; K21.9 Gastro-esophageal reflux disease without esophagitis; E78.5 Hyperlipidemia, unspecified; I10 Essential (primary) hypertension; R74.8 Abnormal levels of other serum enzymes; E87.6 Hypokalemia; K57.90 Diverticulosis of intestine, part unspecified, without perforation or abscess without bleeding; R00.0 Tachycardia, unspecified; Z68.29 Body mass index [BMI] 29.0-29.9, adult; Z91.14 Patient's other noncompliance with medication regimen; Z79.899 Other long term (current) drug therapy

== ENCOUNTER 2017-10-08 15:51 | Inpatient (IN) | payer MEDICARE, OTHER ==
[~2017-10-08] VITALS: Ht 175.2 cm; Wt 90.9 kg
--- NOTE | ~2017-10-08 | DS ---
[place], [place] DISCHARGE SUMMARY NAME[id number] UN[facility] #: [id number] ROOM: 317 DOCTOR: EUSEBIO LARIOS MD BIRTHDATE: [birth year] DOS: 10/09/2017 INITIAL PSYCHIATRIC EVALUATION AND DISCHARGE SUMMARY CHIEF COMPLAINT: The patient nodded when I asked if she would like some fresh fruit. HISTORY OF PRESENT ILLNESS: This is a 72-year-old white female who was initially transferred to the [facility] from [facility] where she was brought by EMS. The patient was found in her home nearly catatonic. The patient was subsequently admitted to [facility] where she had episodes where she would talk and then other episodes where she would just stare blankly off into space. She went for approximately 4 days; however, without eating or drinking much and the hospitalists were concerned with her possible decline in health and did transfer her to the medical floor. Once admitted to the medical floor, the patient did seem to respond and began eating more, drinking more and even conversed with the staff on the medical floor, making it seem as if the patient was definitely selectively mute and did not want to speak to the staff on the psychiatric unit. The patient subsequently was transferred back here when she no longer had the physical needs of the medical floor and there was no bed at [facility]. Upon her readmission here to the [facility], the patient has continued to eat and drink. She has selectively been mute, talking to some staff, refusing to talk to others. She, however, has improved enough that it was felt that a discharge to [facility] would be reasonable as both the nurse practitioner and myself will be following her closely there. PAST MEDICAL HISTORY: Remarkable for bipolar disorder, diverticulosis, GERD, hyperlipidemia, hypothyroidism. SOCIAL HISTORY: She does not drink, smoke cigarettes or use illicit drugs. ALLERGIES: She lists no known allergies. STRENGTHS: She is in a committed relationship that is long-term and is well educated. WEAKNESSES: A long-term psychiatric condition. SUMMARY OF THE COURSE: The patient was basically admitted for monitoring as we awaited a bed at [facility]. She returned to the U having eating more, drinking more and basically returning more to her euthymic state. Given the length of her stay and the fact that her significant other resides at [facility], it was felt that this would be more healthy for her to have her follow up there and she was discharged then to [facility]. MENTAL STATUS AT DISCHARGE: The patient was alert and oriented to self. She did speak a little to me and was pleasant as I approached, smiling. She nodded and did state that she wants help. She was not agitated in any way. There were no gross psychotic symptoms noted. There was no vikki or hypomania. [place], [place] DISCHARGE SUMMARY NAME: ANTOLIN PALOMARES UNIT #: [id number] ROOM: [facility] DOCTOR: EUSEBIO LARIOS MD BIRTHDATE: [birth year] DIAGNOSIS UPON DISCHARGE: Bipolar type 1, mixed, with psychotic features. PLAN: The patient is going to be admitted to [facility] where we will follow her. Medically and psychiatrically she is stable. Her biopsychosocial needs are adequately being met by the staff at the long-term care facility. EUSEBIO LARIOS MD CM:ELIEL [id number] EUSEBIO LARIOS MD 10/09/17 4346 interface
[~2017-10-08 15:51] MED LIST changes: +COGENTIN2 MG/2 ML IM; +Catapres-Tts 20.2 MG PO; +REMERON15 M2 PO; +VITAMIN D31000 UNI1 PO
[2017-10-08 18:14] VITALS: BP 143/69
[2017-10-08 20:00] VITALS: BP 127/57
[2017-10-09 06:59] LABS: BASO % 0.5 % (0.0-1.0); EOS # 0.1 10*3/uL (0.0-0.4); EOS % 2.1 % (1.0-4.0); HEMATOCRIT 35.6 % (37.0-47.0); HEMOGLOBIN 11.9 g/dl (12.0-16.0); LYMPH # 0.6 10*3/uL (1.3-4.4); LYMPH % 14.7 % (27.0-41.0); MEAN CELL VOLUME 92.7 fl (81.0-99.0); MEAN CORPUSCULAR HGB CONC 33.4 g/dl (33.0-37.0); MEAN PLATELET VOLUME 9.9 fl (9.6-12.3); MONO # 0.3 10*3/uL (0.1-1.0); NEUT # 2.9 10*3/uL (2.3-7.9); NEUT % 74.4 % (47.0-73.0); PLATELET COUNT AUTOMATED 140 10*3/uL (130-400); RED BLOOD COUNT 3.84 10*6/uL (4.10-5.10); RED CELL DISTRI WIDTH 13.8 % (0-14.5); WHITE BLOOD COUNT 3.9 10*3/uL (4.8-10.8)
[2017-10-09 07:27] LABS: ALBUMIN 2.6 gm/dl (3.1-4.5); BUN 5 mg/dl (7-24); CHLORIDE 108 mmol/L (98-107); CHOLESTEROL 169 mg/dL (<200); CREATININE 0.41 mg/dL (0.55-1.02); POTASSIUM 3.3 mmol/L (3.5-5.1); SGOT/AST 17 IU/L (3-35); SGPT/ALT 14 U/L (12-78); SODIUM 142 mmol/L (136-145); TRIGLYCERIDES 113 mg/dl (<150); VLDL CHOLESTEROL 23 mg/dL (6-40)
[2017-10-09 07:28] LABS: ALKALINE PHOSPHATASE 107 U/L (45-117); HDL CHOLESTEROL 37 mg/dl (40-60); LDL CHOLESTEROL 109 mg/dL (9-159); TOTAL PROTEIN 5.8 gm/dL (6.4-8.2)
[2017-10-09 07:49] VITALS: BP 128/60
[2017-10-09] MEDS ORDERED: DIVALPROEX SOD125 M1 PO ×2 (10:02)
== END 2017-10-09 17:53 | disposition other institution (70) | DRG 885 ==
LOC: 3N 15:51
PROVIDERS: Registered Nurse
DX: F31.5 Bipolar disorder, current episode depressed, severe, with psychotic features (principal); G93.41 Metabolic encephalopathy; E44.1 Mild protein-calorie malnutrition; E83.51 Hypocalcemia; R17 Unspecified jaundice; R00.0 Tachycardia, unspecified; F23 Brief psychotic disorder; F06.1 Catatonic disorder due to known physiological condition; E03.9 Hypothyroidism, unspecified; E78.5 Hyperlipidemia, unspecified; K21.9 Gastro-esophageal reflux disease without esophagitis; K57.90 Diverticulosis of intestine, part unspecified, without perforation or abscess without bleeding; F41.9 Anxiety disorder, unspecified; I10 Essential (primary) hypertension; D72.810 Lymphocytopenia; E87.6 Hypokalemia; R74.8 Abnormal levels of other serum enzymes; E80.6 Other disorders of bilirubin metabolism; Z79.899 Other long term (current) drug therapy; Z91.14 Patient's other noncompliance with medication regimen; Z68.29 Body mass index [BMI] 29.0-29.9, adult